=== PATIENT | male | born 1940 | race Caucasian/White ===

== ENCOUNTER 2017-10-26 00:47 | Inpatient (IN) | payer MEDICARE ==
[~2017-10-26] VITALS: Ht 167.6 cm; Wt 78.5 kg
[2017-10-26] VITALS (17 sets, daily range): BP systolic 50–179; BP diastolic 0–86
--- NOTE | ~2017-10-26 | PR ---
[place], [place] PROGRESS NOTE NAME: VICTOR HUGO CORREA UNIT #: [id number] ROOM: [facility] DOCTOR: LORETA ALBERT DO BIRTHDATE: [birth year] DOS: 10/26/2017 RAPID RESPONSE NOTE A rapid response was called to the ICU after midnight. We proceeded to the ICU and found the patient to be nonresponsive, apneic and without pulse. A code blue was called. CPR was started and code is running according to ACLS protocols. After multiple runs of compressions, the patient, during compression was intubated. Tube was in 8, it was 24 at the lip. There was good color change on the CO2 detector, breath sounds heard bilaterally. No breath sounds over the epigastrium. Pulse ox proceeded to increase after intubation. He received multiple rounds of epinephrine along with the chest compressions. He was found to be in PEA at that time. During one of the pulse checks, he was found to have a pulse. ACLS was stopped. Blood pressure was suboptimal, pulse ox is in the mid-90s. Fluids and dopamine drip were begun on him. Preparations were made for transfer to [facility] under care of Dr. Mclaughlin, the post-cardiac arrest physician. The patient then lost his pulse went back into PEA, ACLS was started. Multiple rounds of epinephrine and bicarbonate were administered along with CPR and rescue breathing. We were able to get a pulse back again. An art line was placed in his right femoral artery. It was done under sterile conditions. No immediate complications and minimal blood loss. There was difficulty zeroing out the art line and was subsequently removed. I spoke with Dr. Mclaughlin and he agreed to accept the patient. A [facility] arrived. Shortly After [facility] arrived, he lost his pulse again. He was found to be in PEA at that time, multiple rounds of epinephrine were administered according to ACLS protocol. Bedside cardiac ultrasound showed no organized cardiac motility. His pupils were fixed and dilated. We discussed the case with Dr. Mclaughlin and he agreed that the patient was unlikely to benefit from further attempts at resuscitation. We discussed the case with the patient's family, they agreed that ceasing efforts were appropriate. EKG was obtained during first round of ACLS, the patient's ST depressions had improved from prior EKG in the ER earlier that night. There were no acute ST elevations. No ectopy. Rhythm was not tachycardic or bradycardic. [place], [place] PROGRESS NOTE NAME: VICTOR HUGO CORREA UNIT #: [id number] ROOM: [facility] DOCTOR: LORETA ALBERT DO BIRTHDATE: [birth year] LORETA ALBERT DO CM:PNTRANS 41 00 LORETA ALBERT DO 11/04/17 0749 interface
--- NOTE | ~2017-10-26 | EKG ---
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
--- NOTE | ~2017-10-26 | EKG ---
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
--- NOTE | ~2017-10-26 | WRIGHTHP ---
[place], [place] PATIENT HISTORY AND PHYSICAL EXAM NAME: VICTOR HUGO CORREA UNIT #: [id number] ROOM: [facility] DOCTOR: CAROLANN MENDEZ DO BIRTHDATE: [birth year] DOS: 10/26/2017 CHIEF COMPLAINT: Chest pain. HISTORY OF PRESENT ILLNESS: The patient is a 77-year-old male who presented to the [facility] Emergency Department complaining of chest pain. During workup in the ED, he was found to have an elevated troponin of 3.940. He was admitted to the ICU. However, his condition deteriorated. He did go into cardiac arrest, CPR was started, but he remained in PEA. His sister was called, the condition was explained to her and she authorized the code to stop. TIME OF DETH: 529. CAROLANN MENDEZ DO CM:HISPHYS:PATIENT HISTORY AND PHYSICAL EXAMINATION [id number] CAROLANN MENDEZ DO 10/26/17 1626 interface
--- NOTE | ~2017-10-26 | EKG ---
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
[2017-10-26 01:08] LABS: BASO # 0.1 10*3/uL (0.0-0.1); BASO % 0.5 % (0.0-1.0); EOS # 0.1 10*3/uL (0.0-0.4); HEMATOCRIT 45.5 % (42.0-52.0); HEMOGLOBIN 15.6 g/dl (14.0-18.0); LYMPH % 20.1 % (27.0-41.0); MEAN CELL VOLUME 94.6 fl (80.0-94.0); MEAN CORPUSCULAR HGB 32.4 pg (27.0-31.0); MEAN CORPUSCULAR HGB CONC 34.3 g/dl (33.0-37.0); MEAN PLATELET VOLUME 10.3 fl (9.6-12.3); MONO # 0.7 10*3/uL (0.1-1.0); MONO % 6.8 % (3.0-9.0); NEUT # 7.2 10*3/uL (2.3-7.9); NEUT % 71.3 % (47.0-73.0); PLATELET COUNT AUTOMATED 238 10*3/uL (130-400); RED BLOOD COUNT 4.81 10*6/uL (4.50-5.90); RED CELL DISTRI WIDTH 12.6 % (0-14.5); WHITE BLOOD COUNT 10.1 10*3/uL (4.8-10.8)
[2017-10-26 01:28] LABS: ALBUMIN 3.5 gm/dl (3.1-4.5); CREATININE 1.4 mg/dL (0.70-1.30); POTASSIUM 3.7 mmol/L (3.5-5.1); TOTAL PROTEIN 6.5 gm/dL (6.4-8.2)
[2017-10-26 01:31] LABS: TROPONIN I 3.94 ng/ml (<0.045)
[2017-10-26] MEDS ORDERED: PRILOSEC20 M1 PO (02:45)
== END 2017-10-26 05:29 | disposition expired | DRG 311 ==
LOC: ED 00:47 → EDHOLD 01:36 → ICCU 01:49
PROVIDERS: Student in an Organized Health Care Education/Training Program
PROC: 0BH17EZ Insertion of Endotracheal Airway into Trachea, Via Natural or Artificial Opening (ICD-10-PCS; principal; 2017-10-26)
PROC: 5A1935Z Respiratory Ventilation, Less than 24 Consecutive Hours (ICD-10-PCS; principal; 2017-10-26)
PROC: 5A12012 Performance of Cardiac Output, Single, Manual (ICD-10-PCS; principal; 2017-10-26)
DX: I24.9 Acute ischemic heart disease, unspecified (principal); I46.9 Cardiac arrest, cause unspecified